=== PATIENT | female | born 1995 | race Two or more races ===

== ENCOUNTER 2024-01-18 21:00 | Emergency (ER) | payer MEDICAID, SELFPAY ==
[2024-01-18 21:01] VITALS: BMI 30.2
--- NOTE | 2024-01-18 21:42 | PD.EDHAND ---
Upper Extremity Injury RME/HPI General Chief Complaint: Extremity Injury, Upper Stated Complaint: RT THUMB PAIN/SWELLING Time Seen by Provider: 01/18/24 21:32 Arrival date/time: 01/18/24 21:00 28F with no significant PMH presents to ED with 1 day of R thumb pain/swelling w/o fall/trauma. Limitations: no limitations Related Data Previous Rx's ?Medication ?Instructions ?Recorded prednisone 20 mg tablet See Taper PO QDAY #15 tabs 07/29/20 methocarbamol 750 mg tablet 750 mg PO TID PRN pain #30 tabs 06/04/21 methylprednisolone 4 mg tablets in See Rx Instructions .Route 06/04/21 a dose pack (Medrol (Anibal)) .COMPLEX #21 tabs Allergies Allergy/AdvReac Type Severity Reaction Status Date / Time No Known Allergies Allergy Verified 01/18/24 21:03 Review of Systems Review of Systems Systems Reviewed: All systems reviewed, normal except as documented Constitutional Constitutional: Reports system reviewed and no additional complaints, except as documented, Denies fever(s) and Denies headache(s) ENT Ears, Nose, Mouth, and Throat: Denies disequilibrium and Denies headache(s) Cardiovascular Cardiovascular: Reports system reviewed and no additional complaints, except as documented, Denies chest pain and Denies dyspnea Respiratory Respiratory: Reports system reviewed and no additional complaints, except as documented, Denies cough and Denies dyspnea Gastrointestinal Gastrointestinal: Reports system reviewed and no additional complaints, except as documented, Denies abdominal pain, Denies nausea and Denies vomiting Musculoskeletal Musculoskeletal: Reports as per HPI and Reports arthralgias Neurologic Neurologic: Reports system reviewed and no additional complaints, except as documented, Denies confusion, Denies disequilibrium and Denies headache(s) Psychiatric Psychiatric: Denies confusion Past Medical History Social History SMOKING STATUS: Never smoker ED Exam General Limitations: Present no limitations General appearance: Present alert and in no apparent distress Head Head exam: Present atraumatic Eye Eye exam: Present normal appearance, PERRL and EOMI ENT ENT exam: Present normal exam, normal oropharynx and mucous membranes moist Neck Neck exam: Present normal inspection, full ROM and trachea midline Chest Chest inspection: Present normal inspection and symmetric chest wall rise Respiratory Respiratory exam: Present normal lung sounds bilaterally Cardiovascular Cardiovascular exam: Present regular rate, normal rhythm and normal heart sounds Abdominal Exam Abdominal exam: Present soft and normal bowel sounds Extremities Exam Extremities exam: Present full ROM Expanded Upper Extremity Exam Hand exam: Present full ROM (R thumb proximal joint), tenderness and swelling Back Exam Back exam: Present normal inspection and full ROM Neurological Exam Neurological exam: Present alert, oriented X3 and CN II-XII intact Psychiatric Psychiatric exam: Present normal affect and normal mood Skin Skin exam: Present warm, dry, intact and normal color Course Quality Measures none Orders Category Date Time Status Dexamethasone Inj [Decadron Inj] Med 01/18/24 21:32 Discontinued 10 mg PO X1 ONE Naproxen [Naprosyn] Med 01/18/24 21:32 Discontinued 500 mg PO X1 ONE Vital Signs Vital signs: Vital Signs Temperature 98.3 F 01/18/24 21:43 Pulse Rate 73 01/18/24 21:43 Respiratory Rate 16 01/18/24 21:43 Blood Pressure 121/60 01/18/24 21:43 Pulse Oximetry (%) 100 01/18/24 21:43 Oxygen Delivery Method Room Air 01/18/24 21:43 Extremity Injury MDM Narrative MDM Narrative:: 28F with no significant PMH presents to ED with 1 day of R thumb pain/swelling w/o fall/trauma. Physical exam reveals R thumb tenderness, swelling around proximal joint. No skin redness or warmth. ROM intact. Patient is afebrile, calm, and alert. Likely MSK related such as gout or arthritis. Given meds and grief counsellor. Patient data External records reviewed:: [facility] previous records Clinical information provided by:: patient Social determinants that could affect healthcare access:: none Patient has the following chronic illnesses:: none How is presenting disease/condition affected by chronic disease/condition?: no chronic disease Evaluation data The following diagnostics were reviewed and interpreted by me:: other (specify) (none) Lab and/or radiology exams considered but not ordered:: not ordered Interpretation Summary: n/a Medications / Prescriptions Medications or Prescriptions considered but not ordered:: ordered Medication administrations:: Medication Administration History Discontinued Medications Dexamethasone Sodium Phosphate (Dexamethasone Sod Phos Inj 10 Mg/Ml Vial) 10 mg PO X1 ONE Stop: 01/18/24 21:33 Naproxen (Naproxen 250 Mg Tablet) 500 mg PO X1 ONE Stop: 01/18/24 21:33 above Consultations Consultation(s) initiated? (list below): No Diagnosis Upper Extremity Injury Differential Diagnosis: sprain and strain of wrist, fracture of wrist, finger sprain, dislocation of finger, Colles' fracture, fracture of hand and other (joint swelling) Most likely diagnosis given after review of the tests above:: joint swelling Admission Indicated Admission indicated?: not indicated Admission Request Was there a request for admission?: No Disposition Plan Disposition Plan: Discharge Discharge Attestation Discharge Attestation: The patient and all family members were given an opportunity to ask questions and understood the discharge instructions. Discharge instructions specifically effects, indications for sooner follow up or return to the emergency department, and the expected course of current diagnosis. Patient condition: Stable Discharge Plan Plan Patient Disposition: HOME (Self Care) Disposition Comment: Stable Prescriptions/Referrals Prescriptions/Med Rec: No Action prednisone 20 mg tablet See Taper PO QDAY Qty: 15 0RF Taper: Prednisone Taper 20 mg DAILY for 2 Days and 0 Hour 10 mg DAILY for 2 Days and 0 Hour 5 mg DAILY for 7 Days and 0 Hour Rx Instructions: 60mg daily for 5 days methylprednisolone [Medrol (Anibal)] 4 mg tablets,dose pack See Rx Instructions .ROUTE .COMPLEX Qty: 21 0RF Rx Instructions: Take as directed on pack methocarbamol 750 mg tablet 750 mg PO TID PRN (Reason: pain) Qty: 30 0RF Problem List Clinical Impression: Joint swelling Patient/Caregiver Discharge Instructions Additional Instructions: Please follow-up with PCP within 24-48 hours and return immediately if symptoms worsen. If problem persists, recommend outpatient PT and/or MRI follow-up. In the meantime, rest, use ice/heat, and/or compression. Print Language: [place] Stand Alone Forms: Patient Portal Info Letter CLAUDIA/KATHRYN Supervising Physician YUNI Supervising Physician: Dr. Lloyd
[2024-01-18 21:43] VITALS: BP 121/60; PULSE 73; RESP 16; TEMP 36.8; O2SAT 100
[2024-01-18] MEDS: DEXAMETHASONE SOD PHOS INJ 10 MG/ML VIAL PO (21:45)
[2024-01-18] MEDS: NAPROXEN 250 MG TABLET 500 MG PO (21:45)
== END 2024-01-18 21:45 | disposition home or self-care (01) ==
PROVIDERS: Emergency Provider Emergency Medicine; PCP Family Medicine
DX: M25.441 Effusion, right hand (principal)
CPT/HCPCS: 99282; J1100; A9270

== ENCOUNTER 2024-11-10 13:38 | Emergency (ER) | payer MEDICAID, SELFPAY ==
[2024-11-10 14:09] VITALS: BP 117/72; PULSE 71; RESP 16; TEMP 37.2; O2SAT 99
--- NOTE | 2024-11-10 14:20 | XR_ITS ---
Examination: Cervical spine 3 views Technique one AP lateral coned AP odontoid cervical spine 3 views Date and time: November 10, 2024 1428 hours INDICATIONS: Neck pain beginning 4 days ago. FINDINGS: Straightening normal cervical lordosis. No cervical fracture. Intact odontoid. Early degenerative disc disease C5-C6, C6-C7 IMPRESSION: Early degenerative disc disease C5-C6, C6-C7
[2024-11-10] MEDS: KETOROLAC INJ 30 MG/ML VIAL IM (14:42)
--- NOTE | 2024-11-10 14:59 | EDNOTE_ITS ---
ED Neck Injury Pain RME/HPI General Chief Complaint: Neck Pain/Injury Stated Complaint: NECK/BACK/CHEST/ARM PAIN Time Seen by Provider: 11/10/24 14:17 Arrival date/time: 11/10/24 13:38 29-year-old female presents to the Emergency Department for complaint of neck pain radiating down the right arm patient reports symptoms ongoing for last couple of days patient reports she woke up with pain in the right side of her neck and since then she is denying unable to move t to the right side Limitations: no limitations Related Data Previous Rx's ?Medication ?Instructions ?Recorded prednisone 20 mg tablet See Taper PO QDAY #15 tabs 0 07/29/20 methocarbamol 750 mg tablet 750 mg PO TID PRN pain #30 tabs 06/04/21 methylprednisolone 4 mg tablets in See Rx Instructions .Route 06/04/21 a dose pack (Medrol (Anibal)) .COMPLEX #21 tabs cyclobenzaprine 10 mg tablet 10 mg PO TID PRN muscle s pasm 10 11/10/24 days #30 tab-caps ibuprofen 800 mg tablet 800 mg PO TID PRN pain #30 t abs 11/10/24 Allergies Allergy/AdvReac Type Severity Reaction Status Date / Time No Known Allergies Allergy Verified 11/10/24 13:42 Review of Systems Review of Systems Systems Reviewed: All systems reviewed, normal except as documented Constitutional Constitutional: Reports system reviewed and no additional complaints, except as documented, Denies fever(s) and Denies headache(s) Eyes Eyes: Reports system reviewed and no additional complaints, except as documented and Denies blurry vision ENT Ears, Nose, Mouth, and Throat: Reports system reviewed and no additional complaints, except as documented, Denies headache(s), Denies nasal congestion and Denies nasal discharge Cardiovascular Cardiovascular: Reports system reviewed and no additional complaints, except as documented, Denies chest pain and Denies dyspnea Respiratory Respiratory: Reports system reviewed and no additional complaints, except as documented, Denies chest congestion, Denies cough and Denies dyspnea Gastrointestinal Gastrointestinal: Reports system reviewed and no additional complaints, except as documented and Denies abdominal pain Musculoskeletal Musculoskeletal: Reports system reviewed and no additional complaints, except as documented, Denies numbness, Reports stiffness and Denies tingling Integumentary/Breasts Skin/Breast: Reports system reviewed and no additional complaints, except as documented and Denies rash Neurologic Neurologic: Reports system reviewed and no additional complaints, except as documented, Reports as per HPI, Denies headache(s), Denies numbness and Denies tingling Past Medical History Social History SMOKING STATUS: Never smoker ED Exam General Limitations: Present no limitations General appearance: Present alert and in no apparent distress Head Head exam: Present atraumatic, normocephalic and normal inspection Eye Eye exam: Present normal appearance, PERRL and EOMI; Absent conjunctival injection ENT ENT exam: Present mucous membranes moist Neck Neck exam: Present normal inspection, full ROM and trachea midline Expanded Neck Exam Neck image: 2 1. Neck pain Chest Chest inspection: Present normal inspection and symmetric chest wall rise Respiratory Respiratory exam: Present normal lung sounds bilaterally Cardiovascular Cardiovascular exam: Present regular rate, normal rhythm and normal heart sounds Abdominal Exam Abdominal exam: Present soft and normal bowel sounds; Absent distention, tenderness, guarding, rebound or rigidity Extremities Exam Extremities exam: Present normal inspection and full ROM Back Exam Back exam: Present normal inspection and full ROM; Absent CVA tenderness (R), CVA tenderness (L) or muscle spasm Neurological Exam Neurological exam: Present alert, oriented X3, CN II-XII intact, normal gait and reflexes normal; Absent motor sensory deficit Psychiatric Psychiatric exam: Present normal affect and normal mood Skin Skin exam: Present warm, dry, intact and normal color Course Quality Measures none Orders Category Date Time Status XR cervical spine 2-3V Stat Exams 11/10/24 14:20 Completed Ketorolac Inj [Toradol Inj] Med 11/10/24 14:20 Discontinued 30 mg IM X1 ONE Vital Signs Vital signs: Vital Signs Temperature 99 F 11/10/24 14:09 Pulse Rate 71 11/10/24 14:09 Respiratory Rate 16 11/10/24 14:09 Blood Pressure 117/72 11/10/24 14:09 Pulse Oximetry (%) 99 11/10/24 14:09 Oxygen Delivery Method Room Air 11/10/24 14:09 o2 sat 99% r.a wnl Neck Pain MDM Narrative MDM Narrative:: 29-year-old female presents to the Emergency Department for complaint of neck pain radiating down the right arm patient reports symptoms ongoing for last couple of days patient reports she woke up with pain in the right side of her neck and since then she is denying unable to move t to the right side On exam patient well-appearing patient is not appear ill or toxic no acute stress Imaging obtained no acute fracture or dislocation noted Symptoms consistent with cervical radiculopathy Patient given Toradol for pain Patient discharged home in no distress to follow-up with primary care doctor in the next 24 to 48 hours and for any worsening symptoms to return to the ER immediately Patient data External records reviewed:: [facility] previous records Clinical information provided by:: patient Social determinants that could affect healthcare access:: none Patient has the following chronic illnesses:: None How is presenting disease/condition affected by chronic disease/condition?: no chronic disease Evaluation data The following diagnostics were reviewed and interpreted by me:: radiology exam(s) Lab and/or radiology exams considered but not ordered:: Radiology obtained Interpretation Summary: Reviewed by me Medications / Prescriptions Medications or Prescriptions considered but not ordered:: Given Medication administrations:: Medication Administration History Discontinued Medications Ketorolac Tromethamine (Ketorolac Inj 30 Mg/Ml Vial) 30 mg IM X1 ONE Stop: 11/10/24 14:21 Last Admin: 11/10/24 14:42 Dose: 30 mg Documented By: OA Given Consultations Consultation(s) initiated? (list below): No Diagnosis Neck Differential Diagnosis: disc disorder of cervical region, whiplash injury to neck and fracture of cervical spine without lesion of spinal cord Most likely diagnosis given after review of the tests above:: Neck pain Admission Indicated Admission indicated?: not indicated Admission Request Was there a request for admission?: No Disposition Plan Disposition Plan: Discharge Discharge Attestation Discharge Attestation: The patient and all family members were given an opportunity to ask questions and understood the discharge instructions. Discharge instructions specifically effects, indications for sooner follow up or return to the emergency department, and the expected course of current diagnosis. Patient condition: Stable Discharge Plan Plan Patient Disposition: HOME (Self Care) Discharge Disposition comment: Stable Prescriptions/Referrals Prescriptions/Med Rec: New cyclobenzaprine 10 mg tablet 10 mg PO TID PRN (Reason: muscle spasm) 10 Days Qty: 30 0RF ibuprofen 800 mg tablet 800 mg PO TID PRN (Reason: pain) Qty: 30 0RF No Action prednisone 20 mg tablet See Taper PO QDAY Qty: 15 0RF Taper: Prednisone Taper 20 mg DAILY for 2 Days and 0 Hour 10 mg DAILY for 2 Days and 0 Hour 5 mg DAILY for 7 Days and 0 Hour Rx Instructions: 60mg daily for 5 days methylprednisolone [Medrol (Anibal)] 4 mg tablets,dose pack See Rx Instructions .ROUTE .COMPLEX Qty: 21 0RF Rx Instructions: Take as directed on pack methocarbamol 750 mg tablet 750 mg PO TID PRN (Reason: pain) Qty: 30 0RF Problem List Clinical Impression: Cervical radiculopathy Patient/Caregiver Discharge Instructions Education Materials: Radiculopathy Cervical Additional Instructions: Please follow up with your primary care doctor in the next 24-48hrs for any worsening symptoms return here immediately Print Language: Kiswahili Stand Alone Forms: Lian Award Info., Work/School Release, Patient Portal Info Letter PA/FIRE HAZARD INSPECTOR Supervising Physician PA/FIRE HAZARD INSPECTOR Supervising Physician: Dr. daniel
== END 2024-11-10 19:50 | disposition home or self-care (01) ==
LOC: SERX 15:10
PROVIDERS: Emergency Provider Nurse Practitioner Primary Care; PCP Nurse Practitioner Women's Health
DX: M54.12 Radiculopathy, cervical region (principal)
CPT/HCPCS: 72040; 96372; 99283; J1885

== ENCOUNTER 2025-02-28 18:10 | Emergency (ER) | payer MEDICAID, SELFPAY ==
[2025-02-28 18:35] VITALS: BP 118/72; PULSE 72; RESP 18; TEMP 36.7; O2SAT 96
[2025-02-28 19:42] LABS: Basophils # (Auto) 0.0 Thou/mm3 (0.0-0.2); Basophils % (Auto) 0 % (0-2.5); Eosinophils # (Auto) 0.1 Thou/mm3 (0.0-0.5); Eosinophils % (Auto) 1 % (0-10); Hematocrit 37.2 % (36.0-46.0); Hemoglobin 12.3 g/dL (12.0-16.0); Immature Granulocytes Auto 0.03 Thou/mm3 (0.00-0.00); Lymphocytes # (Auto) 2.4 Thou/mm3 (1.0-4.8); Lymphocytes % (Auto) 24 % (10-50); Mean Corpuscular HGB Conc 33.1 g/dl (31.0-37.0); Mean Corpuscular Hemoglobin 29.4 pg (25.0-35.0); Mean Corpuscular Volume 89 fL (80-100); Monocytes # (Auto) 0.7 Thou/mm3 (0.0-0.8); Monocytes % (Auto) 7 % (0-12); Neutrophils # (Auto) 6.8 Thou/mm3 (1.8-7.7); Neutrophils % (Auto) 68 % (37-80); Nucleated Red Blood Cell # 0.00 Thou/mm3 (0.00-0.00); Nucleated Red Blood Cell % 0 /100 WBC (0); Platelet Count 288 Thou/mm3 (140-440); RDW Standard Deviation 42.3 fL (36.4-46.3); Red Blood Count 4.19 Miln/mm3 (4.00-5.20); White Blood Count 10.0 Thou/mm3 (3.6-11.0)
[2025-02-28 20:04] LABS: Alanine Aminotransferase 44 U/L (10-49); Albumin, Serum 4.3 gm/dL (3.5-5.0); Albumin/Globulin Ratio 1.5 (1.2-2.2); Alkaline Phosphatase 67 U/L (46-116); Anion Gap 9 (7-16); Aspartate Amino Transferase 27 U/L (0-34); BUN/Creatinine Ratio 16 Ratio (12-20); Bilirubin,Total 0.2 mg/dL (0.3-1.2); Blood Urea Nitrogen 11 mg/dL (9-23); Calcium 9.2 mg/dL (8.3-10.6); Calcium (Corrected) 9.2 mg/dL (8.5-10.1); Carbon Dioxide 26.1 mMol/L (20.0-31.0); Chloride 104 mMol/L (98-107); Creatinine (Component) 0.7 mg/dL (0.6-1.3); Globulin 2.9 gm/dL (2.3-3.5); Glucose 77 mg/dL (74-106); Lipase 38 U/L (12-53); Osmolality,Calculated 275 (275-295); Potassium 3.7 mMol/L (3.4-5.1); Sodium 139 mMol/L (136-145); Total Protein 7.2 gm/dL (5.7-8.2); eGFR > 60 See Note
[2025-02-28 20:10] LABS: Collection Type, Urine Clean Catch
[2025-02-28 20:17] LABS: HCG Qualitative,Urine Positive
[2025-02-28 20:34] LABS: Amorphous Crystals,Urine Present (Absent); Bilirubin,Urine Negative (Negative); Blood,Urine Negative (Negative); Clarity,Urine Turbid (Clear/Hazy); Color,Urine Yellow (Lt Yel-Yel); Glucose, Urine Negative (Negative); Ketones,Urine Negative (Negative); Leukocyte Esterase,Urine Positive (Negative); Nitrite,Urine Negative (Negative); PH,Urine 7.5 (5.0-7.0); Protein,Urine Trace (Neg - Trace); RBC,Urine 1 /hpf (0-3); Specific Gravity,Urine 1.031 (1.001-1.035); Squamous Epithelial Cell,Urine 2 /hpf (0-5); Urobilinogen,Urine 2.0 mg/dL (0.0-1.0); WBC,Urine < 1 /hpf (0-5)
--- NOTE | 2025-02-28 21:07 | XR_ITS ---
Examination: Complete OB ultrasound, less than 14 weeks, transabdominal Date and time of exam: February 28, 2025, 2141 hours INDICATIONS: Vaginal bleeding and lower back pain onset today. Technique: Obstetrical ultrasound images less than 14 weeks performed via transabdominal imaging Findings: A normal shaped single intrauterine gestation is present in the uterus. pole 1.0 cm corresponds to 7 weeks 1 day gestational age Cardiac motion 148 bpm Ultrasonographic survey of visible and placental structures unremarkable. Amniotic fluid volume appears appropriate for this estimated gestational age. Right ovary 4.0 cm arterial flow Left ovary 2.8 cm arterial flow IMPRESSION: Viable intrauterine gestation 7 weeks 1 day.
[2025-02-28 22:41] LABS: Beta HCG,Quantitative 49291 mIU/mL (<5.0)
--- NOTE | 2025-02-28 23:38 | PD.EDPREG ---
ED OB Contraction Preg RMI/HPI General Chief complaint: Back Pain/Injury Stated complaint: LOWER BACK/ABD PAIN, PREG 6WKS Time Seen by Provider: 02/28/25 18:44 Arrival date/time: 02/28/25 18:10 This is a case of 30-year-old female with no medical history came in in the emergency room due to abdominal pain and lower back pain for 2 days patient denies any injury or trauma denies any vaginal bleeding vaginal discharge vaginal spotting denies any fever chills denies any nausea vomiting patient is 6 weeks 1 para 0 Limitations: no limitations Related Data Previous Rx's ?Medication ?Instructions ?Recorded prednisone 20 mg tablet See Taper PO QDAY #15 tabs 07/29/20 methocarbamol 750 mg tablet 750 mg PO TID PRN pain #30 tabs 06/04/21 methylprednisolone 4 mg tablets in See Rx Instructions .Route 06/04/21 a dose pack (Medrol (Anibal)) .COMPLEX #21 tabs ibuprofen 800 mg tablet 800 mg PO TID PRN pain #30 tabs 11/10/24 acetaminophen 325 mg tablet 650 mg (2 x 325 mg) PO Q6H PRN 02/28/25 (Tylenol) pain #20 tabs Allergies Allergy/AdvReac Type Severity Reaction Status Date / Time No Known Allergies Allergy Verified 02/28/25 18:13 Review of Systems Review of Systems Systems Reviewed: All systems reviewed, normal except as documented Past Medical History Social History SMOKING STATUS: Former smoker ED Exam General Limitations: Present no limitations General appearance: Present alert, in no apparent distress and other (Patient is awake alert oriented not in distress nontoxic looking well-hydrated well-nourished) Head Head exam: Present atraumatic, normocephalic and normal inspection Eye Eye exam: Present normal appearance, PERRL and EOMI ENT ENT exam: Present normal exam, normal oropharynx and mucous membranes moist Neck Neck exam: Present normal inspection, full ROM and trachea midline; Absent tenderness, meningismus, lymphadenopathy or thyromegaly Chest Chest inspection: Present normal inspection and symmetric chest wall rise; Absent tenderness Respiratory Respiratory exam: Present normal lung sounds bilaterally; Absent respiratory distress, wheezes, stridor, accessory muscle use or prolonged expiratory phase Cardiovascular Cardiovascular exam: Present regular rate, normal rhythm and normal heart sounds; Absent bradycardia, tachycardia, irregular rhythm, systolic murmur or diastolic murmur Abdominal Exam Abdominal exam: Present soft, normal bowel sounds and other (Gravid uterus); Absent distention, tenderness, guarding, rebound, rigidity, diminished bowel sounds, hyperactive bowel sounds, hypoactive bowel sounds, psoas sign, obturator sign, Hardy's sign, Rovsing's sign, tenderness at McBurney's Point or hernia Extremities Exam Extremities exam: Present normal inspection and full ROM Back Exam Back exam: Present normal inspection, full ROM and other (ROM intact neurovascular intact); Absent tenderness, CVA tenderness (R), CVA tenderness (L), muscle spasm, paraspinal tenderness, vertebral tenderness, rashes, sciatic notch tenderness (R), sciatic notch tenderness (L), straight leg raise (R) or straight leg raise (L) Neurological Exam Neurological exam: Present alert, oriented X3, CN II-XII intact, normal gait and reflexes normal; Absent motor sensory deficit Psychiatric Psychiatric exam: Present normal affect and normal mood Skin Skin exam: Present warm, dry, intact, normal color and other (Excellent skin turgor) Course Quality Measures none Orders Category Date Time Status US OB <= 14 weeks fetus Stat Exams 02/28/25 21:07 Completed ABO/RH Type Stat Lab 02/28/25 21:34 Completed Beta HCG,Quantitative Stat Lab 02/28/25 21:34 Completed CBC Stat Lab 02/28/25 19:15 Completed Comprehensive Metabolic Panel Stat Lab 02/28/25 19:15 Completed HCG Qualitative,Urine Stat Lab 02/28/25 19:47 Completed Lipase Stat Lab 02/28/25 19:15 Completed Urinalysis Stat Lab 02/28/25 19:47 Completed Acetaminophen Tab [Tylenol Tab] Med 02/28/25 23:34 Discontinued 650 mg PO X1 ONE Vital Signs Vital signs: Vital Signs Temperature 98.0 F 02/28/25 18:35 Pulse Rate 72 02/28/25 18:35 Respiratory Rate 18 02/28/25 18:35 Blood Pressure 118/72 02/28/25 18:35 Pulse Oximetry (%) 96 02/28/25 18:35 Oxygen Delivery Method Room Air 02/28/25 18:35 Oxygen saturation is 96% on room air OB/Uterine Contractions MDM Narrative MDM Narrative:: This is a case of 30-year-old female with no medical history came in in the emergency room due to abdominal pain and lower back pain for 2 days patient denies any injury or trauma denies any vaginal bleeding vaginal discharge vaginal spotting denies any fever chills denies any nausea vomiting patient is 6 weeks 1 para 0 physical examination patient is awake alert oriented not in distress nontoxic looking well-hydrated well-nourished abdominal exam is benign nonsurgical no guarding no rebound no rigidity no tenderness gravid uterus negative psoas negative straight or negative Rovsing negative McBurney's negative Hardy sign negative CVA tenderness patient back exam is normal no tenderness no crepitation no deformity no swelling no paraspinal no paravertebral tenderness leg raise exam is normal no CVA tenderness steady gait patient blood test showed no leukocytosis no anemia kidney and liver function is normal no electrolyte imbalance [place] [address] lipase is normal ultrasound showed a 7 weeks with heart rate 135 based on my physical examination and history patient abdominal pain is due to with back muscle spasm after giving Tylenol patient pain improved and resolved patient will follow-up with PCP in 2 days for reevaluation and for any worsening symptoms and emergent concern return to the emergency room immediately or call 911 ice pack and warm compress as needed for pain Patient was discharged with comfortable condition walking with stable gait. Patient verbalized no further complains explained diagnosis and answered patient question. Patient is comfortable with the proposed management plan including the need to follow up with his/her primary care physician and any specialist if applicable Discussed patient for any urgent condition or worsening sx, He/She needed to go to emergency room immediately or call 911. Patient acknowledge the responsibility to follow up as instructed and to monitor her/his symptoms. For any persistence of the symptoms for more than 3-5 days return precaution advised. Discussed the result of the test and was given printed discharge instruction Patient data External records reviewed:: [facility] previous records Clinical information provided by:: patient Social determinants that could affect healthcare access:: none Patient has the following chronic illnesses:: None How is presenting disease/condition affected by chronic disease/condition?: no chronic disease Evaluation data The following diagnostics were reviewed and interpreted by me:: lab results and radiology exam(s) Lab and/or radiology exams considered but not ordered:: Reviewed Interpretation Summary: Reviewed Medications / Prescriptions Medications or Prescriptions considered but not ordered:: Given Medication administrations:: Medication Administration History Discontinued Medications Acetaminophen (Acetaminophen 325 Mg Tablet) 650 mg PO X1 ONE Stop: 02/28/25 23:35 Given Consultations Consultation(s) initiated? (list below): No Diagnosis OB Contractions Differential Diagnosis: other (Abdominal pain in back muscles spasm) Most likely diagnosis given after review of the tests above:: Abdominal pain in back muscles spasm Admission Indicated Admission indicated?: not indicated Explain why admission is indicated or not indicated:: Not indicated Admission Request Was there a request for admission?: No Admission Attestation Admission request attestation: Not indicated Disposition Plan Disposition Plan: Discharge Discharge Attestation Discharge Attestation: The patient and all family members were given an opportunity to ask questions and understood the discharge instructions. Discharge instructions specifically effects, indications for sooner follow up or return to the emergency department, and the expected course of current diagnosis. Patient condition: Stable Discharge Plan Plan Patient Disposition: HOME (Self Care) Patient condition on transfer: Stable Prescriptions/Referrals Prescriptions/Med Rec: New acetaminophen [Tylenol] 325 mg tablet 650 mg PO Q6H PRN (Reason: pain) Qty: 20 0RF No Action prednisone 20 mg tablet See Taper PO QDAY Qty: 15 0RF Taper: Prednisone Taper 20 mg DAILY for 2 Days and 0 Hour 10 mg DAILY for 2 Days and 0 Hour 5 mg DAILY for 7 Days and 0 Hour Rx Instructions: 60mg daily for 5 days methylprednisolone [Medrol (Anibal)] 4 mg tablets,dose pack See Rx Instructions .ROUTE .COMPLEX Qty: 21 0RF Rx Instructions: Take as directed on pack methocarbamol 750 mg tablet 750 mg PO TID PRN (Reason: pain) Qty: 30 0RF ibuprofen 800 mg tablet 800 mg PO TID PRN (Reason: pain) Qty: 30 0RF Referrals: Sandip Freedman MD [Primary Care Provider, Family Practice] - In 1 week Problem List Clinical Impression: Abdominal pain during , Back muscle spasm Patient/Caregiver Discharge Instructions Education Materials: ED Back Spasm, No Trauma, ED Abdominal Pain, Early Additional Instructions: Follow-up with your primary care physician in 2 days for reevaluation and to be referred to OB auto body estimator for further evaluation and treatment of abdominal pain in and back muscle spasm for any worsening symptoms or any emergent concerns such as vaginal bleeding vaginal discharge vaginal spotting fever chills return to the emergency room immediately or call 911 ice pack and warm compress as needed for pain only Tylenol as needed for pain continue to take multivitamin Print Language: [place] Stand Alone Forms: Lian Award Info., Patient Portal Info Letter PA/[employer]WING [employer]PARTMENT SUPERVISOR Supervising Physician PA/[employer]PARTMENT SUPERVISOR Supervising Physician: Dr. Hudson
[2025-02-28 23:50] VITALS: RESP 16
== END 2025-02-28 23:51 | disposition home or self-care (01) ==
PROVIDERS: Nurse Practitioner Family; Emergency Provider Emergency Medicine; PCP Family Medicine
DX: O26.891 Other specified pregnancy related conditions, first trimester (principal); M62.830 Muscle spasm of back; R10.9 Unspecified abdominal pain; Z3A.01 Less than 8 weeks gestation of pregnancy
CPT/HCPCS: 36415; 76801; 80053; 81001; 81025; 83690; 84702; 85025; 86900; 86901; 99283